=== PATIENT | male | born 1975 | race Caucasian/White ===

== ENCOUNTER 2022-07-14 05:22 | Emergency (ER) | payer OTHER ==
[2022-07-14] MEDS ORDERED: Ibuprofen 400 MG Tab PO ONE (06:05)
== END 2022-07-14 06:55 | disposition home or self-care (01) ==
LOC: FB.ED 05:22
DX: S22.32XA Fracture of one rib, left side, initial encounter for closed fracture (principal); S39.012A Strain of muscle, fascia and tendon of lower back, initial encounter; Z86.16 Personal history of COVID-19; W00.0XXA Fall on same level due to ice and snow, initial encounter
CPT/HCPCS: 71101-LT; 81001; 99283; A9270-GY